=== PATIENT | male | born 1970 | race Caucasian/White ===

== ENCOUNTER 2016-12-21 09:46 | Emergency (ER) | payer SELFPAY ==
[~2016-12-21] VITALS: Ht 188 cm; Wt 86.3 kg
--- OUTSIDE RECORDS SUMMARY | 2016-12-21 09:51 | XMS REPORT | Referral Summary ---
Author Organization Unknown Address Unknown Phone Unavailable Care Team Providers Care Electronics Hardware Design Engineer Name Role Phone Santo Crowe Primary Care Physician [phone] Encounter VC Date(s): 10/20/14 - 10/20/14 Via [facility] [address] [place] [id number] Discharge Diagnosis: Left shoulder strain Discharge Diagnosis: Cervical strain, acute Discharge Diagnosis: Minor head injury Discharge Disposition: Home or Self Care Attending Physician: Tremayne Ugalde DO Admitting Physician: Tremayne Ugalde DO Vital Signs Most recent to 1 oldest [Reference Range]: Temperature Oral 36.2 degC [35.8-37.3 degC] (10/20/14 7:07 AM) Peripheral Pulse 90 bpm Rate [60-100 bpm] (10/20/14 9:33 AM) Heart Rate Monitored 103 bpm [60-100 bpm] *HI* (10/20/14 9:55 AM) Respiratory Rate 18 br/min [14-20 br/min] (10/20/14 9:55 AM) Blood Pressure 139/75 mmHg [90-140/60-90 mmHg] (10/20/14 9:55 AM) Mean Arterial 97 mmHg Pressure, Cuff (10/20/14 9:55 AM) Most recent to 1 oldest [Reference Range]: SpO2 95 % (10/20/14 9:55 AM) Problem List Condition Effective Dates Status Health Status Informant Depression(Confirmed Resolved ) Allergies, Adverse Reactions, Alerts No Known Medication Allergies Medications cyclobenzaprine 10 mg oral tablet 1 tabs, Oral, TID, as needed for spasm, # 30 tabs, 1 Refill(s), Pharmacy: [facility] #[id number], 1 tabs Oral TID,PRN:as needed for spasm Start Date: 02/02/14 Stop Date: 06/26/19 Status: Ordered methylphenidate 10 mg oral tablet 1 tabs, Oral, BID, # 60 tabs, 0 Refill(s) Start Date: 05/02/14 Status: Ordered naproxen 500 mg oral tablet 1 tabs, Oral, BID, # 12 tabs, 0 Refill(s) Start Date: 10/20/14 Status: Ordered Ritalin 20 mg oral tablet 1 tabs, Oral, BID, # 60 tabs, 0 Refill(s) Start Date: 06/14/14 Status: Ordered Zocor 20 mg oral tablet 1 tabs, Oral, Bedtime (once a day), # 30 tabs, 0 Refill(s) Start Date: 01/31/14 Status: Ordered Results No data available for this section Immunizations No data available for this section Procedures No data available for this section Social History Social History Type Response Smoking Status Never smoker Assessment and Plan No data available for this section
--- OUTSIDE RECORDS SUMMARY | 2016-12-21 09:51 | XMS REPORT | Continuity of Care Document ---
Author Author [facility] Organization [facility] Address Unknown Phone Unavailable Allergies Active Description Code Type Severity Reaction Onset Reported/Identified Relationship to Patient Clinical Status Yes No Known Medication Allergies NKMA N/A N/A 01/22/2014 Medications Problems Procedures Results Encounters ACCT No. Visit Date/Time Discharge Status Pt. Type Provider Facility Loc./Unit Complaint [id number] 04/05/2015 12:51:00 2014 23:59:00 DIS Outpatient Lamin Crowe Via [facility] depression [id number] 03/19/2015 13:15:00 2014 23:59:00 DIS Outpatient Lamin Crowe Via [facility] med check
--- OUTSIDE RECORDS SUMMARY | 2016-12-21 09:51 | XMS REPORT | Referral Summary ---
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 Discharge Disposition: 01-Home or Self Care Attending Physician: Lamin Crowe MD Admitting Physician: Lamin Crowe MD Vital Signs Most recent to 1 oldest [Reference Range]: Peripheral Pulse 81 bpm Rate [60-100 bpm] (04/05/15 12:57 PM) Blood Pressure 150/100 mmHg [90-140/60-90 mmHg] *HI* (04/05/15 12:57 PM) SpO2 98 % (04/05/15 12:57 PM) Problem List Condition Effective Dates Status Health Status Informant Depression(Confirmed Resolved ) Allergies, Adverse Reactions, Alerts No Known Medication Allergies Medications Adderall 10 mg oral tablet 10 mg 1 tabs, Oral, BID, # 14 tabs, 0 Refill(s) Start Date: 04/05/15 Stop Date: 04/12/15 Status: Ordered Cymbalta 30 mg oral delayed release capsule 30 mg 1 caps, Oral, Daily, # 30 caps, 0 Refill(s), Pharmacy: [id number], 1 caps Oral Daily Start Date: 03/19/15 Status: Ordered LORazepam 0.5 mg oral tablet 0.5 mg 1 tabs, Oral, Bedtime (once a day), # 30 tabs, 0 Refill(s) Start Date: 8/4/15 Status: Ordered Results No data available for this section Immunizations No data available for this section Procedures No data available for this section Social History Social History Type Response Smoking Status Never smoker Assessment and Plan Extracted from: Title: Office Visit Note Author: Lamin Crowe MD Date: 04/05/15 Assessment/Plan 1.Depression Orders: dextroamphetamine-amphetamine, 10 mg 1 tabs, Oral, BID, # 14 tabs, 0 Refill(s) 2 ADD same treatment as above, will check in with [facility]
--- OUTSIDE RECORDS SUMMARY | 2016-12-21 09:51 | XMS REPORT | Referral Summary ---
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, 1 caps Oral Daily Start Date: 03/19/15 Status: Ordered LORazepam 0.5 mg oral tablet 0.5 mg 1 tabs, Oral, Bedtime (once a day), # 30 tabs, 0 Refill(s) Start Date: 03/19/15 Status: Ordered Results No data available for this section Immunizations No data available for this section Procedures No data available for this section Social History Social History Type Response Smoking Status Never smoker Assessment and Plan Extracted from: Title: Office Visit Note Author: Lamin Crowe MD Date: 01/14/15 Assessment/Plan 1.Shoulder pain Ordered: XR Shoulder Complete Right Orders: dextroamphetamine-amphetamine, 30 mg 1 tabs, Oral, qAM, # 30 tabs, 0 Refill(s) also tramadol 50 mg qid #120 2 bilateral leg pain
--- OUTSIDE RECORDS SUMMARY | 2016-12-21 09:51 | XMS REPORT | Referral Summary ---
Author Author [facility] Organization [facility] Address Unknown Phone Unavailable Care Team Providers Care Pizza Baker Name Role Phone Santo Crowe Primary Care Physician [phone] Encounter Date(s): 03/19/15 - 03/19/15 [facility] [address] [id number] Discharge Diagnosis: Depression Discharge Diagnosis: Alcoholism Discharge Diagnosis: Anxiety disorder Discharge Diagnosis: Adult ADHD Discharge Disposition: 01-Home or Self Care Attending Physician: Lamin Crowe MD Admitting Physician: Lamin Crowe MD Vital Signs Most recent to 1 oldest [Reference Range]: Temperature Tympanic 35.8 degC [36.6-38.1 degC] *LOW* (03/19/15 2:35 PM) Peripheral Pulse 80 bpm Rate [60-100 bpm] (03/19/15 2:35 PM) Blood Pressure 130/86 mmHg [90-140/60-90 mmHg] (03/19/15 2:35 PM) SpO2 97 % (03/19/15 2:35 PM) Problem List Condition Effective Dates Status [...] Daily, # 30 caps, 0 Refill(s), Pharmacy: [id number], 1 caps Oral Daily Start Date: 03/19/15 [...] Visit Note Author: Lamin Crowe MD Date: 03/19/15 Assessment/Plan 1.Adult ADHD we will stop the adderall at this time 2.Depression we will start him on cymbalta 30 mg and he will call us in a week with a progress report. Orders: DULoxetine, 30 mg 1 caps, Oral, Daily, # 30 caps, 0 Refill(s), Pharmacy: [id number], 1 caps Oral Daily LORazepam, 0.5 mg 1 tabs, Oral, Bedtime (once a day), # 30 tabs, 0 Refill(s) Addendum I advised him I did not want to start 2 new drugs at once, but think adderall may have by contribiuted to behaviour ( along with EtOh) Lamin Crowe MD on March 20, 2015 22:26:06 CDT
[2016-12-21 09:52] VITALS: TEMP 98.7; Ht 188 cm; Wt 86.3 kg
--- NOTE | 2016-12-21 10:06 | NUR ---
PROVIDER DR HARRELL IN ROOM W/ PT.
--- OUTSIDE RECORDS SUMMARY | 2016-12-21 10:17 | XMS REPORT | Continuity of Care Document ---
Author Author [facility] Organization [facility] Address Unknown Phone Unavailable Allergies Active Description Code Type Severity Reaction Onset Reported/Identified Relationship to Patient Clinical Status Yes No Known Medication Allergies NKMA N/A N/A 01/22/2014 Medications Problems Procedures Results Encounters ACCT No. Visit Date/Time Discharge Status Pt. Type Provider Facility Loc./Unit Complaint [id number] 04/05/2015 12:51:00 2014 23:59:00 DIS Outpatient Lamin Crowe Via [facility] depression [id number] 03/19/2015 13:15:00 2014 23:59:00 DIS Outpatient Lamin Crowe Via [facility] med check
[2016-12-21] MEDS ORDERED: SERT25TA PO (10:21)
[2016-12-21] MEDS ORDERED: NORMAL SALINE 1,000 ML IV ONE ×2 (10:30→11:30)
--- NOTE | 2016-12-21 10:38 | ERPDOC ---
Departure Disposition Decision Date: December 21, 2016 Disposition Decision Time: 12:28 Disposition: 01 DISCHARGED HOME, SELF-CARE Impression Impression Impression: Primary Impression: Anxiety Additional Impressions: Skin lesion of face Skin lesion of left arm Skin lesion of right arm Severity: Mild Condition: Improved Seen By: Physician only Referrals: Your Doctor 1 Day [employer] 1 Day Call today for appointment Patient Instructions: Anxiety (GEN) Problems/Meds/Labs Reviewed?: Yes Medications reviewed and manag: Yes Follow up care ordered?: Yes Mental Status: Alert, Oriented Scripts Hydroxyzine Pamoate (Vistaril) 50 Mg Capsule 1 CAP PO QID for Anxiety, #20 CAP 0 Refills Prov: MAURICIO HARRELL DO 12/21/16 HPI - Psychosocial General Chief Complaint: Psychiatric Problems Stated Complaint: INFESTATIONH, HX MENTAL ILLNESS Time Seen by MD: 10:01 Source: patient (Presents to the ER with multiple complaints. 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 Patient states he usually takes Garlic, "because the bugs don't like it", but this weekend began to take Coconut Oil by mouth and rubbing on his body. Patient states the Coconut oil has not helped and he thought his eye was "popping out" overnight. ), family (Mother states she feels the patient is harmful to himself, because og the was he's treating his conditon), other (Patient denies suicidal or homicidal ideation. ) Exam Limitations: no limitations, language barrier HPI - Psychosocial Occurred At: home Onset: Changing over time Duration: other Severity: mild Associated Symptoms: anxiety, impaired concentration, DENIES: ingestion, injury , insomnia, suicidal ideation Hx of Similar Symptoms: Yes Allergies: Coded Allergies: No Known Allergies (Unverified , 12/21/16) Past History Past Medical History Pt denies signifigant PMH Hx Echocardiogram: No Surgical History Denies Surgeries Family History Family History: Negative Social History Smoking Status: Never smoker Does patient use chewing tobac: No Second Hand Exposure: No Substance Use Type: does not use Alcohol Intake: none Marital Status: Single Housing: house Household Members: family Service: No Current Occupational Status: unemployed Occupational Hazard: No Advance Directives: Yes Full Code Record Review Pertinent history updated: Yes Review of Systems Constitutional Constitutional: DENIES: chills, fever Eyes Lids/Accessories: DENIES: erythema, swelling ENMT Ears: DENIES: erythema, pain Balance: DENIES: ataxia, vertigo Sinuses: DENIES: congestion, rhinorrhea Mouth/Throat: DENIES: sore throat Cardiovascular Cardiac: DENIES: chest pain, dyspnea on exertion, orthopnea Rhythm/Rate: DENIES: tachycardia Pulmonary Respiratory: DENIES: cough, dyspnea, sputum GI Upper Abdomen: DENIES: nausea, pain, vomiting Lower Abdomen: DENIES: constipation, diarrhea, pain General: DENIES: dysuria Musculoskeletal General: DENIES: cramps, pain, weakness Integumentary Skin: color change, itching, sores (to face and arms, consistant with picking) , DENIES: rash Neurological General: DENIES: ataxia, change in strength, headache, numbness, poor coordination, seizures, syncope, vertigo, weakness Psychiatric Psychiatric: DENIES: anxiety, depression, nervousness Hematologic/Lymphatic Hematologic/Lymphatic: DENIES: anemia Allergic/Immunological Allergic/Immunoligical: DENIES: sneezing All other Systems All Other Systems: Reviewed and Negative Physical Exam General General Nourishment: well nourished, well developed, appears stated age, adult General Body Habitus: well groomed Vitals and Pain First Documented Vital Signs Date Time Temp Pulse Resp B/P Pulse Ox O2 Delivery O2 Flow Rate FiO2 12/21/16 09:52 98.7 114 20 156/98 98 Room Air Weight: Kilograms: 86.300 Height (feet): 6 Height (inches): 2.00 Triage Pain Scale: RN VS reviewed by Provider: Yes Eyes (brief) Eyes Brief: found: EOMI, PERRL ENMT (brief) ENMT Brief: FOUND: TM clear, TM good light reflex, mucosa moist, NOT FOUND: pharnyx erythema Neck (brief) Neck: FOUND: trachea midline, NOT FOUND: adenopathy, nuchal rigidity, tenderness, tracheal deviation Respiratory (brief) Respiratory: FOUND: clear all sequeira, equal bilaterally Cardiovascular (brief) Cardiac: FOUND: regular rate, regular rhythm Capillary Refill: <2 sec Pulses: all distal extremities, equal, strong Abdomen (brief) Abdominal Brief: FOUND: bowel normo active x4, soft, NOT FOUND: distended, tender Lymphatic (brief) Lymphatic Brief: NOT FOUND: adenopathy Musculoskeletal (brief) Musculoskeletal Brief: NOT FOUND: spasm, tenderness Integumentary (brief) Integumentary Brief: FOUND: other (Patient with seversl sores/lesions to face and arms, consitant with picking), pink ( [id number]), warm Neurologic (brief) Neurological Brief: FOUND: CN w/o gross def to obs, gait w/o gross def to obs, motor-no gross deficits, sensory-no gross deficits, NOT FOUND: ataxia Psychiatric (brief) Psychiatric Brief: FOUND: alert, attentive, normal affect, oriented Differential Diagnoses Considering: Anxiety, Bipolar, Depression, Hallucinations, Hypoglycemia, Alcohol Intoxication, Other Intoxication, Acute Psychosis, Suicidal Attempt, Other Progress Results/Orders Orders Procedure Category Date Status Time Iv Lock (Ed Only) EDM 12/21/16 Transmitted 10:21 Cbc W/Auto LAB 12/21/16 Complete Diff-Reflex Manual Cmp - Comprehensive LAB 12/21/16 Complete Metabolic Acetaminophen LAB 12/21/16 Complete Salicylate LAB 12/21/16 Complete Tsh - Thyroid Stim LAB 12/21/16 Complete Hormone Normal Saline (Normal PHA 12/21/16 Complete Saline Iv) 10:30 Ua, Dip Wreflex LAB 12/21/16 Complete Microsc & Vp Strategic Planning 10:21 Drug Screen LAB 12/21/16 Complete Urine-Test At [facility] 10:21 Normal Saline (Normal PHA 12/21/16 Complete Saline Iv) 11:30 Undefined Reference LAB 12/21/16 Complete Lab Test 10:43 Lab Results Laboratory Tests Test 12/21/16 10:43 12/21/16 10:44 Reference Lab Test Name Sent out White Blood Count 10.2T/MM3 Red Blood Count 5.39M/MM3 Hemoglobin 16.4GM/DL Hematocrit 47.6% Mean Corpuscular Volume 88.3UM3 Mean Corpuscular Hemoglobin 30.4UUG Mean Corpuscular Hemoglobin Concent 34.5GM/DL RDW Standard Deviation 40.6FL Platelet Count 202T/MM3 Mean Platelet Volume 11.3UM3 Immature Granulocyte % (Auto) 0.3% Neutrophils (%) (Auto) 60.2% Lymphocytes (%) (Auto) 28.9% Monocytes (%) (Auto) 8.3% Eosinophils (%) (Auto) 1.8% Basophils (%) (Auto) 0.5% Absolute Immature Granulocyte (auto 0.03T/MM3 Absolute Neutrophils (auto) 6.1T/MM3 Absolute Lymphocytes (auto) 2.9T/MM3 Absolute Monocytes (auto) 0.8T/MM3 Absolute Eosinophils (auto) 0.2T/MM3 Absolute Basophils (auto) 0.1T/MM3 Urine Collection Type Cleancatch-midstream Urine Color Yellow Urine Turbidity Clear Urine pH 5.5 Urine Specific Sabael 1.025 Urine Protein Negative Urine Glucose (UA) Negative Urine Ketones 3+ Urine Blood Negative Urine Nitrite Negative Urine Bilirubin 1+ Urine Urobilinogen 0.2EU/DL Urine Leukocyte Esterase Negative Urinalysis Comment Microscopic not ind. Turbidity < 20 Sodium Level 144MEQ/L Potassium Level 3.7MEQ/L Chloride Level 101MEQ/L Carbon Dioxide Level 22MEQ/L Anion Gap 21MEQ/L Blood Urea Nitrogen 15.0MG/DL Creatinine 0.9MG/DL Glomerular Filtration Rate Calc 92 BUN/Creatinine Ratio 17RATIO Glucose Level 81MG/DL Calculated Osmolality 277MOSM/KG Calcium Level 9.7MG/DL Total Bilirubin 1.30MG/DL Icterus Index < 2 Aspartate Amino Transf (AST/SGOT) 40U/L Alanine Aminotransferase (ALT/SGPT) 50U/L Alkaline Phosphatase 77U/L Total Protein 8.3G/DL Albumin 5.2G/DL Globulin 3.1G/DL Albumin/Globulin Ratio 1.7RATIO Thyroid Stimulating Hormone (TSH) 2.23MIU/L Chemistry Specimen Hemolysis < 15 Salicylates Level < 4MG/DL Urine Opiates Screen NegativeNG/ML Urine Oxycodone Screen NegativeNG/ML Urine Methadone Screen NegativeNG/ML Urine Propoxyphene Screen NegativeNG/ML Acetaminophen Level < 10UG/ML Urine Barbiturates Screen NegativeNG/ML Urine Tricyclic Antidepressants NegativeNG/ML Urine Phencyclidine Screen NegativeNG/ML Urine Amphetamines Screen PositiveNG/ML Urine Methamphetamines Screen NegativeNG/ML Urine Benzodiazepines Screen NegativeNG/ML Urine Cocaine Screen NegativeNG/ML Urine Cannabinoids Screen NegativeNG/ML Urine Drug Screen Confirmation Sent out Urine Drug Screen Information Pending Medications Current ED Medications Sodium Chloride 1,000 ml @ 0 mls/hr Q0M ONCE IV Last administered on 12/21/16t 10:44; Start 12/21/16 at 10:30; Stop 12/21/16 at 10:31; Status DC Sodium Chloride (Normal Saline IV) 1,000 ml @ 0 mls/hr Q0M ONCE IV ; Start 12/21 at 11:30; Stop 12/21/16 at 11:31; Status DC Progress Progress Patient is resting comfortably without complaint. Patient refused additional IVF Refused to wait for remaining labs Acetaminophen and Salicylate reported Negative from [facility] was unable to process the ETOH, so the test was cancelled Consult/PCP Consult/PCP : Physician Contacted: [facility] Time Called: 11:12 Time of first response: 11:12 Type of discussion: Phone Consult/PCP Time Arrived: 12:[address] Gastelum spoke with Radhames at [facility], will send a screener Comments Roger from [facility] has evaluated the patient Will not meet criteria for admission Has arranged for follow-up at [facility], Patient will Call for appointment MAURICIO HARRELL DO December 21, 2016 10:38 MAURICIO HARRELL DO December 21, 2016 10:38
--- NOTE | 2016-12-21 10:44 | NUR ---
LAB LAB IN ROOM FOR UADS AND BLOOD DRAW W/ CHARTED IV START.
[2016-12-21 10:53] LABS: BASOPHILS # (AUTO) 0.1 T/MM3 (0-0.2); BASOPHILS % (AUTO) 0.5 % (0-2); EOSINOPHILS # (AUTO) 0.2 T/MM3 (0-0.5); EOSINOPHILS % (AUTO) 1.8 % (0-4); HCT - HEMATOCRIT 47.6 % (41-53); HGB - HEMOGLOBIN 16.4 GM/DL (13.5-17.5); IMMATURE GRANULOCYTE # (AUTO) 0.03 T/MM3 (0.00-0.03); IMMATURE GRANULOCYTE % (AUTO) 0.3 % (0.0-0.5); LYMPHOCYTES # (AUTO) 2.9 T/MM3 (1-4.8); LYMPHOCYTES % (AUTO) 28.9 % (23-45); MEAN CORPUSCULAR HGB 30.4 UUG (26-34); MEAN CORPUSCULAR HGB CONC(MCHC 34.5 GM/DL (31-37); MEAN CORPUSCULAR VOLUME 88.3 UM3 (80-100); MEAN PLATELET VOLUME 11.3 UM3 (9.4-12.4); MONOCYTES # (AUTO) 0.8 T/MM3 (0-0.8); MONOCYTES % (AUTO) 8.3 % (0-9.0); NEUTROPHILS #(AUTO)-ABSOLUTE 6.1 T/MM3 (1.8-7.7); NEUTROPHILS % (AUTO) 60.2 % (33-66); RED BLOOD COUNT 5.39 M/MM3 (4.50-5.90); WBC - WHITE BLOOD COUNT 10.2 T/MM3 (4.5-11.0)
[2016-12-21 10:59] LABS: BLOOD, URINE NEGATIVE (NEGATIVE); COLOR,URINE YELLOW (YELLOW); LEUKOCYTE ESTERASE ,URINE NEGATIVE (NEGATIVE); NITRITE,URINE NEGATIVE (NEGATIVE); UROBILINOGEN,URINE 0.2 EU/DL (NORMAL)
[2016-12-21 11:02] LABS: ALBUMIN 5.2 G/DL (3.5-5.0); ALBUMIN/GLOBULIN RATIO 1.7 RATIO (1.1-2.2); ALKALINE PHOSPHATASE 77 U/L (38-126); ALT (SGPT) 50 U/L (21-72); ANION GAP 21 MEQ/L (5-15); AST (SGOT) 40 U/L (17-59); BUN/CREATININE RATIO 17 RATIO (6-26); CALCIUM 9.7 MG/DL (8.4-10.2); CHLORIDE 101 MEQ/L (98-107); CO2 - CARBON DIOXIDE 22 MEQ/L (22-30); CREATININE 0.9 MG/DL (0.8-1.5); GLOMERULAR FILTRATION RATE 92; GLUCOSE 81 MG/DL (75-110); POTASSIUM 3.7 MEQ/L (3.6-5); SODIUM 144 MEQ/L (134-144); TOTAL PROTEIN 8.3 G/DL (6.3-8.2)
[2016-12-21 11:10] LABS: AMPHETAMINE SCREEN,URINE POSITIVE
[2016-12-21 11:11] LABS: BARBITURATE SCREEN,URINE NEGATIVE; BENZODIAZEPINES SCREEN,URINE NEGATIVE; CANNABINOID SCREEN,URINE NEGATIVE; COCAINE SCREEN,URINE NEGATIVE; METHADONE SCREEN, URINE NEGATIVE; METHAMPHETAMINE SCREEN, URINE NEGATIVE; OPIATE SCREEN,URINE NEGATIVE; PHENCYCLIDINE SCREEN,URINE NEGATIVE; TRICYCLIC ANTIDEPRESSANT,URINE NEGATIVE
[2016-12-21 11:32] LABS: THYROID STIM HORMONE-TSH 2.23 MIU/L (0.47-4.68)
--- NOTE | 2016-12-21 11:40 | NUR ---
PSYCHE CONSULT [place] [facility] IN ROOM W/ PT.
[2016-12-21] MEDS ORDERED: HYDR50CA PO (12:36)
[2016-12-21 12:50] VITALS: BP 137/87; PULSE 92; RESP 18; O2SAT 97
--- NOTE | 2016-12-21 12:50 | NUR ---
DISCHARGE PT GIVEN INSTRUCTIONS FOR CONT CARE OF ANXIETY AND SKIN CONDITION W/ RX FOR VISTARIL . PT VERBALIZED UNDERSTANDING AND SIGNED FORM, LEFT ER AMBULATORY W/O ASSIST, ALERT, VS CHARTED IN ACUTE DISTRESS.
[2016-12-21 13:35] LABS: ACETAMINOPHEN < 10 UG/ML (10-30); SALICYLATE < 4 MG/DL (2-20)
== END 2016-12-21 12:50 | disposition home or self-care (01) ==
LOC: ED 09:46
DX: F41.9 Anxiety disorder, unspecified (principal); L98.9 Disorder of the skin and subcutaneous tissue, unspecified
CPT/HCPCS: 80053; 80306; 80307; 81003; 84443; 85025